=== PATIENT | female | born 1960 | race African-American/Black ===

== ENCOUNTER 2023-05-24 06:09 | Emergency (ER) | payer OTHER ==
[~2023-05-24] VITALS: Ht 162.6 cm; Wt 80.0 kg
[2023-05-24 06:41] VITALS: O2SAT 100
[2023-05-24 07:53] LABS: BASOPHILS % 0.5 % (0.0-2.0); DIFFERENTIAL COMMENT 0; EOSINOPHILS % 0.5 % (0.0-5.0); HEMATOCRIT. 41.9 % (36.0-48.0); HEMOGLOBIN. 13.7 g/dL (12.0-16.0); LYMPHOCYTES % 13.2 % (20.0-50.0); MEAN CORPUSCULAR HEMOGLOBIN 27.6 pg (28.0-32.0); MEAN CORPUSCULAR HGB CONC 32.8 g/dL (31.0-37.0); MEAN CORPUSCULAR VOLUME 84.2 fL (81.0-99.0); MEAN PLATELET VOLUME 10.4 fl (7.4-10.4); MONOCYTES % 4.7 % (2.0-8.0); NEUTROPHILS % 81.1 % (40.0-76.0); PLATELET 207 x1000/uL (130-400); RED BLOOD CELL COUNT 4.98 mill/uL (4.2-5.4); RED CELL DISTRIBUTION WIDTH 13.9 % (11.6-14.6); WHITE BLOOD COUNT 6.4 x1000/uL (4.5-11.0)
[2023-05-24 08:03] LABS: PROTHROMBIN TIME 10.7 sec (9.6-11.0)
[2023-05-24 08:26] LABS: CLARITY URINE CLEAR (CLEAR); COLOR URINE YELLOW (YELLOW); GLUCOSE URINE NEGATIVE (NEGATIVE); KETONES URINE 1+ (NEGATIVE); LEUKOCYTE ESTERASE URINE NEGATIVE (NEGATIVE); NITRITE URINE NEGATIVE (NEGATIVE); OCCULT BLOOD URINE NEGATIVE (NEGATIVE); PROTEIN URINE 1+ (NEGATIVE); SPECIFIC GRAVITY URINE 1.017 (1.005-1.030); UROBILINOGEN URINE 0.2 E.U./dL (0.2-1.0)
[2023-05-24 08:41] LABS: SQUAMOUS EPITHELIAL CELL URINE 1+ /lpf (RARE/1+)
[2023-05-24 08:42] LABS: BACTERIA URINE TRACE; WBC URINE 0-2 /hpf (0-2)
[2023-05-24 08:43] LABS: RBC URINE NONE SEEN /hpf (0-2)
[2023-05-24 08:53] LABS: ALANINE AMINOTRANSFERASE 15 IU/L (10-49); ALBUMIN 4.7 g/dL (3.2-4.8); ASPARTATE AMINOTRANSFERASE 22 IU/L (<34); BILIRUBIN TOTAL 0.4 mg/dL (0.1-1.0); CALCIUM 9.8 mg/dL (8.7-10.4); CARBON DIOXIDE 24 mEq/L (21-32); CHLORIDE 106 mEq/L (98-107); CREATININE 0.6 mg/dL (0.6-1.0); GLUCOSE 146 mg/dL (70-105); PHOSPHORUS 2.8 mg/dL (2.5-4.9); POTASSIUM 4.1 mEq/L (3.5-5.1); PROTEIN TOTAL 8.2 g/dL (6.0-8.3); SODIUM 138 mEq/L (136-145); T4 FREE 1.04 ng/dL (0.89-1.76); THYROID STIMULATING HORMONE 0.47 uIU/mL (0.55-4.78); UREA NITROGEN BLOOD 12 mg/dL (9-23)
[2023-05-24 09:36] VITALS: BP 148/75; PULSE 81; RESP 19; TEMP 98.1
== END 2023-05-24 09:38 | disposition home or self-care (01) ==
LOC: ER 06:25
DX: E11.649 Type 2 diabetes mellitus with hypoglycemia without coma (principal); E78.00 Pure hypercholesterolemia, unspecified; I10 Essential (primary) hypertension; Z88.0 Allergy status to penicillin
CPT/HCPCS: 36415; 80053; 81003; 82962; 83735; 84100; 84439; 84443; 85025; 99283